=== PATIENT | female | born 1965 | race Caucasian/White ===

== ENCOUNTER 2017-06-07 12:32 | Day surgery (SDC) | payer OTHER ==
[~2017-06-07 12:32] MED LIST: RINGER'S SOLUTION,LACTATED 1,000 ML IV PRN
[2017-06-07] MEDS ORDERED: RINGER'S SOLUTION,LACTATED 1,000 ML IV ONE ×2 (13:25→14:50)
[2017-06-07] MEDS ORDERED: BUPIVACAINE HCL/EPINEPHRINE 50 ML VIAL IJ ONE ×2 (14:10)
--- NOTE | 2017-06-07 14:27 | OR ---
Operative Report - Dictated Report Narrative: Date: 06/07/2017 Preop dx: symptomatic gallstones Postop dx: hydrops of the gallbladder Procedure: laparoscopic cholecystectomy Surgeon: Jun Chawla MD Anesthesia: GETA EBL: minimal Specimen: gallbladder Drains: none Complications: none apparent Description: The patient was placed in the supine position and following the smooth induction of general endotracheal anesthesia the abdomen was prepped and draped in a sterile fashion. All port sites were anesthetized with marcaine prior to incision. A 5mm infraumbilical incision was carried out and blunt dissection was taken down to the abdominal wall. A perforating towel clip was placed through the umbilical raphe for countertraction. The abdomen was entered under direct vision with a 5mm blunt port with a scope within the lumen of the trocar. The abdomen was then insufflated to a pressure of 15mmHg with carbon dioxide. A 12mm superior midline and two right flank 5mm blunt ports were inserted under direct vision. The gallbladder was extremely tense and distended. It was drained percutaneously with a needle and we obtained sixty cc' s of white bile. The fundus was graped and elevated to the diaphragm. The infundibulum was grasped for countertraction. The cystic duct and cytic artery and a small posterior arterial branch were isolated with a critical view of safety. Each structure was individually and sequentially doubly clipped and divided. The gallbladder was taken out of the fossa with a combination of blunt , scissor, and electrocautery dissection. Once liberated it was placed in an endocatch bag. Mini-laparotomy was required to deliver the gallbladder through the superior midline port. Inspection was carried out. Hemostasis appeared to be adequate. There was no evidence of bile leak. The pneumoperitoneum was evacuated and the ports removed. The fascial defect in the superior midline port was approximated with interrupted figure-of-8 heavy vicryl suture. Incisions were closed with subcuticular stitches of 4-0 Vicryl and sealed with dermabond. the patient tolerated the procedure well without apparent complications and was discharged from the operating room in stable condition.
[2017-06-07 17:59] VITALS: BP 134/77
== END 2017-06-07 12:33 | disposition home or self-care (01) ==
LOC: AMB 12:32
PROVIDERS: ATTEND Specialist
PROC: 0FT44ZZ Resection of Gallbladder, Percutaneous Endoscopic Approach (ICD-10-PCS; principal; 2017-06-07 13:40)
DX: K80.20 Calculus of gallbladder without cholecystitis without obstruction (principal); K82.1 Hydrops of gallbladder; I10 Essential (primary) hypertension; F41.9 Anxiety disorder, unspecified; Z68.26 Body mass index [BMI] 26.0-26.9, adult